=== PATIENT | male | born 1965 | race Caucasian/White ===

== ENCOUNTER 2016-08-25 11:42 | Emergency (ER) | payer SELFPAY ==
[~2016-08-25] VITALS: Ht 175.3 cm; Wt 70.0 kg
[2016-08-25 11:43] VITALS: BP 128/95; PULSE 100; RESP 20; TEMP 98.2; O2SAT 96
--- NOTE | 2016-08-25 11:49 | PD ---
Physical Exam Time Seen by Provider: 11:48 Narrative Pt presents to the ED for evaluation of neck pain that pain today. States has a history of "neck problems" and today turned a certain way and felt a "pop." Denies numbness or tingling. VSS. Awaiting bed placement. Data Data Last Documented VS Vital Signs Date Time Temp Pulse Resp B/P Pulse Ox O2 Delivery O2 Flow Rate FiO2 08/25/16 11:43 98.2 100 20 128/95 96 Room Air MDM Supervised Visit with CHRISTY: Judit Barrett Aug 25, 2016 11:49
[2016-08-25] MEDS ORDERED: IBUP800T23 PO (12:34)
[2016-08-25] MEDS ORDERED: ROBA500T PO (12:34)
--- NOTE | 2016-08-25 12:35 | PD ---
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 Reports the pain as a tightness and stiffness. Denies paresthesias, loss of sensation, decreased range of motion, decreased strength of bilateral upper extremities. Denies radiation of pain. Denies headache, lightheadedness, dizziness. Denies IV drug use or cancer. Denies fever, vomiting. Has not taken any medications or tried any treatments to relieve the symptoms. Has no known allergies. Has no other medical complaints. No other modifying factors or associated signs and symptoms. PFSH Past Medical History Medical History: Denies Significant Hx Past Surgical History Surgical History: No Previous Surgery Social History Alcohol Use: No Tobacco Use: Yes Substance Use: No Allergies-Medications (Allergen,Severity, Reaction): Coded Allergies: No Known Allergies (Unverified , 08/25/16) Reported Meds & Prescriptions Reported Meds & Active Scripts Active Ibuprofen 800 Mg Tab 800 Mg PO Q6HR PRN Robaxin (Methocarbamol) 500 Mg Tab 500 Mg PO QID PRN Review of Systems Except as stated in HPI: all other systems reviewed are Neg Physical Exam Narrative GENERAL: Well-nourished, well-developed male patient, in no acute distress; afebrile, nontoxic-appearing SKIN: Warm and dry. HEAD: Atraumatic. Normocephalic. EYES: Pupils equal and round. No scleral icterus. No injection or drainage. ENT: Mucosa pink and moist. Airway patent. NECK: Trachea midline. No lymphadenopathy. Midline point tenderness on palpation of the cervical spine; this is a normal finding per the patient; no step-offs. Active rotation of the neck greater than 45 left and right. Reproducible tenderness to bilateral musculature of the neck. No obvious deformities. CARDIOVASCULAR: Regular rate. RESPIRATORY: No accessory muscle use. GASTROINTESTINAL: Flat. MUSCULOSKELETAL: No obvious deformities. No clubbing. No cyanosis. No edema. Normal gait. BACK: No point tenderness on palpation of spine. No obvious deformities. NEUROLOGICAL: Awake and alert. Oriented 3. No obvious cranial nerve deficits. Motor grossly within normal limits. Normal speech. Moves all extremities. 5/5 strength to all extremities. Sensory intact. PSYCHIATRIC: Appropriate mood and affect; insight and judgment normal. Data Data Last Documented VS Vital Signs Date Time Temp Pulse Resp B/P Pulse Ox O2 Delivery O2 Flow Rate FiO2 08/25/16 11:43 98.2 100 20 128/95 96 Room Air Orders Ibuprofen (Motrin) (08/25/16 12:45) Methocarbamol (Robaxin) (08/25/16 12:45) [facility] Medical Decision Making Medical Screen Exam Complete: Yes Emergency Medical Condition: Yes Medical Record Reviewed: Yes Differential Diagnosis Muscle spasm, cervical strain, acute exacerbation of chronic neck pain Narrative Course 51-year-old male with history of chronic midline posterior neck pain with acute exacerbation today after twisting his neck wrong while working on a car. Denies IV drug use or cancer. Denies fever, vomiting. Patient has full strength and range of motion to the bilateral extremities extremities. Sensory is intact. Without traumatic injury I do not suspect fracture and feel imaging is not necessary at this time. Patient is ambulatory with a normal gait. Ibuprofen and Robaxin administered in the ER. Ibuprofen or Robaxin prescribed for home. Instructed patient to follow up with primary care provider. Patient verbalizes understanding and agreement with treatment plan. Patient is medically cleared and stable for discharge. Discussed reasons to return to the emergency department. Patient agrees with treatment plan. The patients vital signs are stable and the patient is stable for outpatient follow-up and treatment. Patient discharged home, stable and in no acute distress. Diagnosis Primary Impression: Chronic midline posterior neck pain Referrals: Primary Care Physician Patient Instructions: Chronic Neck Pain (GEN), General Instructions, Neck Pain (ED) Additional Instructions: Tylenol or ibuprofen as directed and as needed to reduce pain Robaxin as prescribed for muscle spasms Get adequate rest Ice and/or heating pad to affected area to reduce pain Avoid aggravating activity; increase activity as tolerated Follow-up with primary care provider Return to the emergency department immediately with worsening symptoms Med/Other Pt SpecificInfo: Prescription(s) given Scripts Ibuprofen 800 Mg Aor700 Mg PO Q6HR PRN (PAIN) #30 TAB Ref 0 Prov:Judit Gardner 08/25/16 Methocarbamol (Robaxin)500 Mg [id number] Mg PO QID PRN (MUSCLE SPASM) #30 TAB Ref 0 Prov:Judit Gardner 08/25/16 Disposition: 01 DISCHARGE HOME Condition: Stable Judit Gadrner Aug 25, 2016 12:35
[2016-08-25] MEDS ORDERED: METHOCARBAMOL 500 MG TAB PO ONE (12:45)
[2016-08-25] MEDS ORDERED: IBUPROFEN 800 MG TAB PO ONE (12:45)
== END 2016-08-25 12:55 | disposition home or self-care (01) ==
LOC: NEPK 11:42
DX: M54.2 Cervicalgia (principal); G89.29 Other chronic pain; M43.6 Torticollis; Z72.0 Tobacco use; X50.1XXA Overexertion from prolonged static or awkward postures, initial encounter; Y99.0 Civilian activity done for income or pay
CPT/HCPCS: 99283

== ENCOUNTER 2016-11-04 16:07 | Observation (INO) | payer SELFPAY ==
[~2016-11-04] VITALS: Ht 175.3 cm; Wt 75.0 kg
[~2016-11-04 16:07] MED LIST: IBUP800T23 PO; ROBA500T PO
[2016-11-04 16:09] VITALS: BP 130/90; PULSE 98; RESP 20; TEMP 98.1; O2SAT 96
--- NOTE | 2016-11-04 16:28 | PD ---
HPI Chief Complaint: Chest Pain Time Seen by Provider: 16:26 Travel History International Travel<30 days: No Contact w/Intl Traveler<30days: No Traveled to known affect area: No History of Present Illness HPI 51-year-old male presents to the ED for evaluation of one month history of intermittent left-sided chest pain. 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 Described as sharp, lasting variable lengths of time. No alleviating or exacerbating factors reported. Patient endorses accompanying palpitations and shortness of breath. He also endorses intermittent nausea but does not associate this with the chest pain. He endorses chronic nonproductive cough. He is a current smoker, one pack per day since teenage years. He denies fevers, chills, diaphoresis. He endorses family history of [place], sister at age 50. He's never had a cardiac workup. He has not seen a doctor in "many years." PFSH Past Medical History Medical History: Denies Significant Hx Diminished Hearing: No Tetanus Vaccination: < 5 Years Past Surgical History Surgical History: No Previous Surgery Social History Alcohol Use: No Tobacco Use: Yes (1 ppd) Substance Use: No Allergies-Medications (Allergen,Severity, Reaction): Coded Allergies: No Known Allergies (Unverified , 11/04/16) Reported Meds & Prescriptions Reported Meds & Active Scripts Active No Active Prescriptions or Reported Medications Review of Systems Except as stated in HPI: all other systems reviewed are Neg Physical Exam Narrative GENERAL: Well-nourished, well-developed white male in no acute distress. SKIN: Focused skin assessment warm/dry. HEAD: Normocephalic. EYES: No scleral icterus. No injection or drainage. NECK: Supple, trachea midline. No JVD or lymphadenopathy. CARDIOVASCULAR: Regular rate and rhythm without murmurs, gallops, or rubs. CHEST: Nontender throughout without deformity or crepitus. RESPIRATORY: Breath sounds coarse with bilateral wheezes. No accessory muscle use. GASTROINTESTINAL: Abdomen soft, non-tender, nondistended. No epigastric TTP. Active bowel sounds. MUSCULOSKELETAL: No cyanosis, or edema. BACK: Nontender without obvious deformity. No CVA tenderness. Data Data Last Documented VS Vital Signs Date Time Temp Pulse Resp B/P (MAP) Pulse Ox O2 Delivery O2 Flow Rate FiO2 11/04/16 16:29 129/89 (102) 11/04/16 16:25 98 Nasal Cannula 2.00 11/04/16 16:17 93 20 11/04/16 16:09 98.1 Orders Orders Electrocardiogram (11/04/16 16:22) B-Type Natriuretic Peptide (11/04/16 16:22) Ckmb (Isoenzyme) Profile (11/04/16 16:22) Complete Blood Count With Diff (11/04/16 16:) Comprehensive Metabolic Panel (11/04/16 16:) Magnesium (Mg) (11/04/16 16:22) Prothrombin Time / Inr (Pt) (11/04/16 16:) Act Partial Throm Time (Ptt) (11/04/16 16:) Troponin I (11/04/16:) Chest, Single Ap (11/04/16 16:) Ecg Monitoring (11/04/16 16:22) Bilateral Bp Monitoring (11/04/16 16:) Iv Access Insert/Monitor (11/04/16 16:) Oxygen Administration (11/04/16 16:) Aspirin (Aspirin) (11/04/16 16:30) Sodium Chloride 0.9% Flush (Ns Flush) (11/04/16 16:30) Methylprednisolone So Succ Inj (Solumedr (11/04/16 16:30) Albuterol-Ipratropium Neb (Duoneb Neb) (11/04/16 16:30) CKMB (11/04/16 16:45) CKMB% (11/04/16 16:45) Place In Observation (11/04/16 17:52) Activity Bed Rest With Brp (11/04/16 17:52) Vital Signs (Adult) Q4H (11/04/16 17:52) Cardiac Rhythm .As Directed (11/04/16:52) Notify Dr: Other .PRN (11/04/16:52) Notify Parameters (11/04/16 17:52) Diet Heart Healthy (11/04/16 Dinner) Ckmb (Isoenzyme) Profile (11/04/16 17:52) Ckmb (Isoenzyme) Profile (11/04/16 20:52) Troponin I (11/04/16 17:52) Troponin I (11/04/16 20:52) Electrocardiogram (11/04/16 17:52) Electrocardiogram (11/04/16 20:52) ^ Obtain (11/04/16 17:52) Sodium Chloride 0.9% Flush (Ns Flush) (11/04/16 18:00) Sodium Chloride 0.9% Flush (Ns Flush) (11/04/16 21:00) Industrial Electrician Journeyman / Telemetry DORIS.Q8H (11/04/16 17:52) Admit Order (Ed Use Only) (11/04/16 17:52) Labs Laboratory Tests Test 11/04/16 16:45 White Blood Count 10.1 TH/MM3 Red Blood Count 5.64 MIL/MM3 Hemoglobin 17.4 GM/DL Hematocrit 51.5 % Mean Corpuscular Volume 91.2 FL Mean Corpuscular Hemoglobin 30.8 PG Mean Corpuscular Hemoglobin Concent 33.8 % Red Cell Distribution Width 13.1 % Platelet Count 204 TH/MM3 Mean Platelet Volume 7.7 FL Neutrophils (%) (Auto) 53.1 % Lymphocytes (%) (Auto) 33.1 % Monocytes (%) (Auto) 10.6 % Eosinophils (%) (Auto) 2.4 % Basophils (%) (Auto) 0.8 % Neutrophils # (Auto) 5.4 TH/MM3 Lymphocytes # (Auto) 3.4 TH/MM3 Monocytes # (Auto) 1.1 TH/MM3 Eosinophils # (Auto) 0.2 TH/MM3 Basophils # (Auto) 0.1 TH/MM3 CBC Comment DIFF FINAL Differential Comment Prothrombin Time 10.5 SEC Prothromb Time International Ratio 1.0 RATIO Activated Partial Thromboplast Time 27.8 SEC Blood Urea Nitrogen 19 MG/DL Creatinine 0.72 MG/DL Random Glucose 99 MG/DL Total Protein 8.1 GM/DL Albumin 3.8 GM/DL Calcium Level 8.6 MG/DL Magnesium Level 2.1 MG/DL Alkaline Phosphatase 87 U/L Aspartate Amino Transf (AST/SGOT) 65 U/L Alanine Aminotransferase (ALT/SGPT) 153 U/L Total Bilirubin 0.4 MG/DL Sodium Level 139 MEQ/L Potassium Level 4.1 MEQ/L Chloride Level 108 MEQ/L Carbon Dioxide Level 24.5 MEQ/L Anion Gap 7 MEQ/L Estimat Glomerular Filtration Rate 116 ML/MIN Total Creatine Kinase 135 U/L Creatine Kinase MB 1.0 NG/ML Troponin I LESS THAN 0.02 NG/ML B-Type Natriuretic Peptide LESS THAN 2 PG/ML MDM Medical Decision Making Medical Screen Exam Complete: Yes Emergency Medical Condition: Yes Differential Diagnosis angina versus COPD versus pneumonia versus chest pain versus ACS versus GERD versus other Narrative Course 51-year-old male presents to the ED for evaluation of one month history of intermittent left-sided chest pain. Described as sharp, lasting variable lengths of time. No alleviating or exacerbating factors reported. Patient endorses accompanying palpitations and shortness of breath. He also endorses intermittent nausea but does not associate this with the chest pain. He endorses chronic nonproductive cough. He is a current smoker, one pack per day since teenage years. He denies fevers, chills, diaphoresis. He endorses family history of [place], sister at age 50. He's never had a cardiac workup. He has not seen a doctor in "many years." Vitals reviewed. Physical exam reveals a nontoxic-appearing white male in no acute distress. No appreciable M/ R/G. He does have coarse breath sounds in bilateral lung vital with end expiratory wheezing. No lower extremity edema. EKG: Rate 105, sinus tachycardia. WA interval 140, QRS 97, QTC 383 ms. Normal axis. No acute ST changes. Reviewed by Dr. Vera. CXR: Normal per radiology read. Cardiac enzymes: Negative 1. CBC: No concerning abnormalities. CMP: Elevated LFTs with normal bilirubin. INR 1.0. Patient was administered 125 mg Solu-Medrol and DuoNeb 3. Breath sounds are somewhat improved on recheck. Given his suspicious left-sided chest pain coupled with his risk factors I feel that chest pain center admission warranted. The patient is agreeable with this plan. Please see [facility] notes for disposition. Scripts No Active Prescriptions or Reported Meds Mirta Moser Nov 04, 2016 16:28
[2016-11-04 16:29] VITALS: BP 129/89
[2016-11-04] MEDS ORDERED: methylPREDNISolone SOD SUCC 125 MG/2 ML VIAL IV PUSH ONE (16:30)
[2016-11-04] MEDS ORDERED: ASPIRIN 325 MG TAB PO ONE (16:30)
[2016-11-04] MEDS ORDERED: SODIUM CHLORIDE 0.9% FLUSH 10 ML FLUSH IVF PRN (16:30)
[2016-11-04] MEDS: RESP: ALBUTEROL 2.5 MG/IPRATROPIUM 0.5 MG NEB (SCH) INH (16:36)
--- NOTE | 2016-11-04 16:37 | RADRPT ---
EXAM DATE/TIME: 11/04/2016 16:25 [facility] COMPARISON: No previous studies available for comparison. INDICATIONS : Chest pain. MEDICAL HISTORY : None. SURGICAL HISTORY : None. ENCOUNTER: Initial ACUITY: 1 month PAIN SCORE: 5/10 LOCATION: Left chest FINDINGS: A single view of the chest demonstrates the lungs to be symmetrically aerated without evidence of mas s, infiltrate or effusion. The cardiomediastinal contours are unremarkable. Osseous structures are intact. CONCLUSION: Normal examination. Gaudencio Gutierrez MD on November 04, 2016 at 16:35 Board Certified Radiologist. This report was verified electronically.
[2016-11-04 17:11] LABS: AUTOMATED NEUTROPHIL # 5.4 TH/MM3 (1.8-7.7); BASOPHIL # 0.1 TH/MM3 (0-0.2); BASOPHIL % 0.8 % (0.0-2.0); EOSINOPHIL # 0.2 TH/MM3 (0-0.4); EOSINOPHIL % 2.4 % (0.0-4.0); HEMATOCRIT 51.5 % (39.0-51.0); HEMO FLAGS DIFF FINAL; LYMPH % 33.1 % (9.0-44.0); LYMPHOCYTE # 3.4 TH/MM3 (1.0-4.8); MEAN CELL VOLUME 91.2 FL (80.0-100.0); MEAN CORPUSCULAR HEMOGLOBIN 30.8 PG (27.0-34.0); MEAN CORPUSCULAR HGB CONC 33.8 % (32.0-36.0); MONO % 10.6 % (0.0-8.0); NEUT % 53.1 % (16.0-70.0); PLATELET COUNT 204 TH/MM3 (150-450); RED BLOOD COUNT 5.64 MIL/MM3 (4.50-5.90); RED CELL DISTRIBUTION WIDTH 13.1 % (11.6-17.2); WHITE BLOOD COUNT 10.1 TH/MM3 (4.0-11.0)
[2016-11-04 17:23] LABS: APTT (PATIENT) 27.8 SEC (24.3-30.1); PROTHROMBIN TIME - PATIENT 10.5 SEC (9.8-11.6)
[2016-11-04 17:41] LABS: ALKALINE PHOSPHATASE 87 U/L (45-117); ALT (GPT) 153 U/L (12-78); ANION GAP 7 MEQ/L (5-15); AST (GOT) 65 U/L (15-37); BICARBONATE 24.5 MEQ/L (21.0-32.0); BLOOD UREA NITROGEN 19 MG/DL (7-18); CHLORIDE 108 MEQ/L (98-107); CREATINE KINASE 135 U/L (39-308); GLOMERULAR FILTRATION RATE 116 ML/MIN (>89); MAGNESIUM 2.1 MG/DL (1.5-2.5); POTASSIUM 4.1 MEQ/L (3.5-5.1); SODIUM (NA) 139 MEQ/L (136-145); TOTAL BILIRUBIN ADULT 0.4 MG/DL (0.2-1.0)
[2016-11-04] MEDS ORDERED: SODIUM CHLORIDE 0.9% FLUSH 10 ML FLUSH IV FLUSH PRN (18:00)
[2016-11-04] MEDS ORDERED: LORazepam 2 MG/ML VIAL IV PUSH PRN ×4 (18:30)
[2016-11-04] MEDS ORDERED: FLUMAZENIL 0.5 MG/5 ML VIAL IV PUSH PRN (18:30)
[2016-11-04] MEDS ORDERED: LORazepam 1 MG TAB PO PRN (18:30)
[2016-11-04] MEDS ORDERED: LORazepam 2 MG TAB PO PRN (18:30)
[2016-11-04 18:33] VITALS: BP 115/75; PULSE 92; RESP 19; O2SAT 96
[2016-11-04 20:45] VITALS: BP 128/86; PULSE 97; RESP 18; TEMP 98.5; O2SAT 95
[2016-11-04] MEDS: SODIUM CHLORIDE 0.9% FLUSH 10 ML FLUSH IV FLUSH SCH (21:00)
[2016-11-04 22:17] LABS: CREATINE KINASE 105 U/L (39-308)
[2016-11-04 22:29] LABS: CKMB LESS THAN 0.5 NG/ML (0.5-3.6)
[2016-11-04 23:05] VITALS: PULSE 99
[2016-11-05] VITALS: BP 175/79; PULSE 103; RESP 20; TEMP 98.6; O2SAT 95
[2016-11-05 04:06] VITALS: BP 123/69; PULSE 98; RESP 18; TEMP 97.9; O2SAT 95
[2016-11-05 08:00] VITALS: PULSE 103
[2016-11-05 08:23] VITALS: BP 125/81; PULSE 101; RESP 20; TEMP 97.4; O2SAT 93
[2016-11-05] MEDS: SODIUM CHLORIDE 0.9% FLUSH 10 ML FLUSH IV FLUSH SCH (08:39)
--- NOTE | 2016-11-05 09:29 | HHI.HP ---
HPI Primary Care Physician No Primary Care Physician Chief Complaint Chest pain History of Present Illness This is a 51-year-old male that presents to ED with a complaint of one month of intermittent chest discomforts. It is in the left center of his chest. Usually lasting 2-3 minutes but on rare occasions lasting up to 15 minutes. States is not exertional. 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 Is described as sharp. It has been as high as an 8-9 out of 10. He times been diaphoretic. Has not noticed shortness of breath or nausea. Cannot recall prior cardiac testing. Denies recent illness. Denies fevers or chills. Review of Systems General: Patient denies fevers, chills recent, and recent travel HEENT: Patient denies headache, sore throat, difficulty swallowing. Cardiovascular: Has the chest discomfort as mentioned above. Denies sensation of heart beating rapidly or irregularly. No syncope. He has been diaphoretic a few times. Respiratory: Denies shortness of breath or inspirational chest discomfort. Denies coughing wheezing or hemoptysis. GI: Patient denies nausea, vomiting, diarrhea, abdominal pain, bloody stools. Musculoskeletal: Patient denies joint pain or edema. Denies calf pain or edema. Neurovascular: Patient denies numbness, tingling, weakness in extremities. Denies headache. Endocrine: Denies polyuria and polydipsia. Hematologic: Denies easy bruising. Skin: Denies rash or itching. Past Family Social History Allergies: Coded Allergies: No Known Allergies (Unverified , 11/04/16) Past Medical History Tobacco abuse. Denies hypertension, hyperlipidemia, diabetes, and CAD. Past Surgical History Noncontributory. Reported Medications Reported Meds & Active Scripts Active No Active Prescriptions or Reported Medications Active Ordered Medications Current Medications Medications (Trade) Dose Ordered Sig/Jannet Route Start Time Stop Time Status Last Admin (NS Flush) 2 ml UNSCH PRN IVF 11/04/16 16:30 (NS Flush) 2 ml UNSCH PRN IV FLUSH 11/04/16 18:00 (NS Flush) 2 ml BID IV FLUSH 11/04/16 21:00 11/05/16 08:39 (Romazicon Inj) 0.2 mg Q1M PRN IV PUSH 11/04/16 18:30 (Ativan) 1 mg Q4H PRN PO 11/04/16 18:30 (Ativan Inj) 1 mg Q4H PRN IV PUSH 11/04/16 18:30 (Ativan) 2 mg Q2H PRN PO 11/04/16 18:30 (Ativan Inj) 2 mg Q2H PRN IV PUSH 11/04/16 18:30 (Ativan Inj) 2 mg Q1H PRN IV PUSH 11/04/16 18:30 (Ativan Inj) 2 mg Q15M PRN IV PUSH 11/04/16 18:30 Family History He states his father at age 79 of a myocardial infarction had onset coronary artery disease in his 50s. He states that his sister at age 50 and was told it was cardiac related. Physical Exam Vital Signs Vital Signs Date Time Temp Pulse Resp B/P (MAP) Pulse Ox O2 Delivery O2 Flow Rate FiO2 11/05/16 08:23 97.4 101 20 125/81 (96) 93 11/05/16 04:06 97.9 98 18 123/69 (87) 95 11/05/16 00:00 98.6 103 20 175/79 (111) 95 11/04/16 23:05 99 11/04/16 20:45 98.5 97 18 128/86 (100) 95 11/04/16 18:45 11/04/16 18:33 92 19 115/75 (88) 96 Room Air 11/04/16 16:29 129/89 (102) 11/04/16 16:25 98 Nasal Cannula 2.00 11/04/16 16:17 93 20 96 Room Air 11/04/16 16:09 98.1 98 20 130/90 (103) 96 Room Air Physical Exam GENERAL: This is a well-nourished, well-developed patient, in no apparent distress. Patient speaks in clear complete sentences. Patient is pleasant. HEENT: Head is atraumatic and normocephalic. Neck is supple without lymphadenopathy and trachea is midline. No JVD or carotid bruits. CARDIOVASCULAR: Regular rate and rhythm without murmurs, gallops, or rubs. RESPIRATORY: Scattered wheezing. Breath sounds equal bilaterally. No rales, or rhonchi. Chest wall is nontender. No use of accessory muscles. GASTROINTESTINAL: Abdomen is nontender, nondistended. Abdomen soft. No obvious pulsatile mass or bruit. No CVA tenderness. Strong femoral pulses bilaterally. Normal bowel sounds in all quadrants. MUSCULOSKELETAL: Patient is moving upper and lower extremities freely. No calf tenderness or edema, no Homans sign. Strong pulses in upper and lower extremities. NEUROLOGICAL: Patient is alert and oriented. Cranial nerves 2-12 are grossly intact. No focal deficits and speech is clear. SKIN: No rash and turgor is normal. Laboratory Laboratory Tests Test 11/04/16 16:45 11/04/16 21:19 11/04/16 23:30 White Blood Count 10.1 Red Blood Count 5.64 Hemoglobin 17.4 Hematocrit 51.5 Mean Corpuscular Volume 91.2 Mean Corpuscular Hemoglobin 30.8 Mean Corpuscular Hemoglobin Concent 33.8 Red Cell Distribution Width 13.1 Platelet Count 204 Mean Platelet Volume 7.7 Neutrophils (%) (Auto) 53.1 Lymphocytes (%) (Auto) 33.1 Monocytes (%) (Auto) 10.6 Eosinophils (%) (Auto) 2.4 Basophils (%) (Auto) 0.8 Neutrophils # (Auto) 5.4 Lymphocytes # (Auto) 3.4 Monocytes # (Auto) 1.1 Eosinophils # (Auto) 0.2 Basophils # (Auto) 0.1 CBC Comment DIFF FINAL Differential Comment Prothrombin Time 10.5 Prothromb Time International Ratio 1.0 Activated Partial Thromboplast Time 27.8 Blood Urea Nitrogen 19 Creatinine 0.72 Random Glucose 99 Total Protein 8.1 Albumin 3.8 Calcium Level 8.6 Magnesium Level 2.1 Alkaline Phosphatase 87 Aspartate Amino Transf (AST/SGOT) 65 Alanine Aminotransferase (ALT/SGPT) 153 Total Bilirubin 0.4 Sodium Level 139 Potassium Level 4.1 Chloride Level 108 Carbon Dioxide Level 24.5 Anion Gap 7 Estimat Glomerular Filtration Rate 116 Total Creatine Kinase 135 105 Creatine Kinase MB 1.0 LESS THAN 0.5 Troponin I LESS THAN 0.02 LESS THAN 0.02 LESS THAN 0.02 B-Type Natriuretic Peptide LESS THAN 2 Result Diagram: 11/04/16 1645 11/04/16 1645 Imaging Last 48 hours Impressions Chest X-Ray 11/04/16 1622 Signed Impressions: Service Date/Time: October 16:25 - CONCLUSION: Normal examination. Gaudencio Gutierrez MD Course EKGs have been sinus rhythm without significant ST segment depressions or elevations. Caprini VTE Risk Assessment Caprini VTE Risk Assessment: No/Low Risk (score <= 1) Caprini Risk Assessment Model Point Value = 1 Point Value = 2 Point Value = 3 Point Value = 5 Age 41-60 Minor surgery BMI > 25 kg/m2 Swollen legs Varicose veins or History of unexplained or recurrent spontaneous Oral contraceptives or hormone replacement Sepsis (< 1 month) Serious lung disease, including pneumonia (< 1 month) Abnormal pulmonary function Acute myocardial infarction Congestive heart failure (< 1 month) History of inflammatory bowel disease Medical patient at bed rest Age 61-74 Arthroscopic surgery Major open surgery (> 45 min) Laparoscopic surgery (> 45 min) Malignancy Confined to bed (> 72 hours) Immobilizing plaster cast Central venous access Age >= 75 History of VTE Family history of VTE Factor V Leiden Prothrombin [id number] Lupus anticoagulant Anticardiolipin antibodies Elevated serum homocysteine Heparin-induced thrombocytopenia Other congenital or acquired thrombophilia Stroke (< 1 month) Elective arthroplasty Hip, pelvis, or leg fracture Acute spinal cord injury (< 1 month) Prophylaxis Regimen Total Risk Factor Score Risk Level Prophylaxis Regimen 0-1 Low Early ambulation 2 Moderate Order ONE of the following: *Sequential Compression Device (SCD) *Heparin 5000 units SQ BID 3-4 Higher Order ONE of the following medications: *Heparin 5000 units SQ TID *Enoxaparin/Lovenox 40 mg SQ daily (WT < 150 kg, CrCl > 30 mL/min) *Enoxaparin/Lovenox 30 mg SQ daily (WT < 150 kg, CrCl > 10-29 mL/min) *Enoxaparin/Lovenox 30 mg SQ BID (WT < 150 kg, CrCl > 30 mL/min) AND/OR *Sequential Compression Device (SCD) 5 or more Highest Order ONE of the following medications: *Heparin 5000 units SQ TID (Preferred with Epidurals) *Enoxaparin/Lovenox 40 mg SQ daily (WT < 150 kg, CrCl > 30 mL/min) *Enoxaparin/Lovenox 30 mg SQ daily (WT < 150 kg, CrCl > 10-29 mL/min) *Enoxaparin/Lovenox 30 mg SQ BID (WT < 150 kg, CrCl > 30 mL/min) AND *Sequential Compression Device (SCD) Assessment and Plan Assessment and Plan * Chest pain: Patient has had serial cardiac enzymes and EKGs for ruling out purposes. He will be seen by Dr. Castillo of cardiology in the chest pain center and likely undergo a Raghavendra protocol ETT. He'll be discharged home if the stress test is nonischemic. * Tobacco abuse: Patient has been counseled on the importance of smoking cessation. Patient is stable at this time. He is agreeable to this plan. Liang Childs Nov 05, 2016 09:29
[2016-11-05] MEDS ORDERED: RESP: ALBUTEROL 2.5 MG/IPRATROPIUM 0.5 MG NEB (SCH) INH ONE (09:45)
[2016-11-05] MEDS ORDERED: RESP: ALBUTEROL 2.5 MG/IPRATROPIUM 0.5 MG NEB (PRN) INH (09:45)
--- NOTE | 2016-11-05 12:49 | TR ---
Date Performed: 11/05/2016 Time Performed: 11:43:31 DOCTOR: Mark Castillo DRUG LIST: CLINICAL HISTORY: REASON FOR TEST: Chest pain REASON FOR ENDING: OBSERVATION: CONCLUSION: OMA PROTOCOL. NO CP. TEST STOPPED AFTER EXCEEDING GOAL HR SECONDARY TOS SOB.Maximu m AF=106 % Max HR Achieved=89.0% Maximum HV=146/98 Total Exercise Time=9:01 COMMENTS: Conclusion: Normal treadmill exercise. No evidence of ischemia.
--- NOTE | 2016-11-05 12:53 | HHI.DCPOC ---
Discharge Care Plan Diagnosis: (1) Chest pain (2) Tobacco abuse Goals to Promote Your Health * To prevent worsening of your condition and complications * To maintain your health at the optimal level Directions to Meet Your Goals Take your medications as prescribed Follow your dietary instruction Follow activity as directed Keep your appointments as scheduled Take your immunizations and boosters as scheduled If your symptoms worsen call your PCP, if no PCP go to Urgent Care Center or Emergency Room Smoking is Dangerous to Your Health. Avoid second hand smoke Call the 24-hour hour crisis hotline for domestic abuse at Liang Childs Nov 05, 2016 12:53
--- NOTE | 2016-11-05 14:43 | EKG ---
Date Performed: 11/05/2016 Time Performed: 00:01:49 PTAGE: 51 years EKG: Sinus rhythm NORMAL ECG PREVIOUS TRACING : 11/04/2016 21.13 Since previous tracing, no significant change noted DOCTOR: Mark Castillo Interpretating Date/Time 11/05/2016 14:42:32
--- NOTE | 2016-11-05 14:46 | EKG ---
Date Performed: 11/04/2016 Time Performed: 21:13:43 PTAGE: 51 years EKG: Sinus rhythm NORMAL ECG PREVIOUS TRACING : 11/04/2016 16.23 Since previous tracing, no significant change noted DOCTOR: Mark Castillo Interpretating Date/Time 11/05/2016 14:44:29
--- NOTE | 2016-11-05 14:48 | EKG ---
Date Performed: 11/04/2016 Time Performed: 16:23:44 PTAGE: 51 years EKG: SINUS TACHYCARDIA ABNORMAL RHYTHM ECG INTERPRETATION BASED ON A DEFAULT AGE OF 40 YEARS PREVIOUS TRACING : 07/12/1998 15.37 Since previous tracing, no significant change noted DOCTOR: Mark Castillo Interpretating Date/Time 11/05/2016 14:46:02
== END 2016-11-05 14:45 | disposition home or self-care (01) ==
LOC: NEPC 16:07 → NEDA 17:55 → NEPGCP 18:48
DX: R07.9 Chest pain, unspecified (principal); F17.210 Nicotine dependence, cigarettes, uncomplicated; R00.2 Palpitations; R06.02 Shortness of breath; R11.0 Nausea; Z82.49 Family history of ischemic heart disease and other diseases of the circulatory system
CPT/HCPCS: 71010; 80053; 82550; 82552; 83735; 83880; 84484; 85025; 85610; 85730; 93005; 93017; 94640; 94664; 96374; 99285; G0378; J2930